=== PATIENT | male | born 1980 ===

== ENCOUNTER 2018-07-18 02:59 | Emergency (ER) | payer MEDICAID ==
[2018-07-18 03:15] VITALS: BMI 23.5
--- NOTE | 2018-07-18 03:25 | ED PDOC ---
Arrival/HPI - General Time Seen by Provider: 07/18/18 03:22 Historian: Patient, Family, EMS EM Caveat: Uncooperative - History of Present Illness Narrative History of Present Illness (Text): 07/18/18 03:02 37 year old male, with unobtainable past medical history, presents to the emergency department by EMS found by the police for reportedly suicidal ideation. Patient was found by the water. According to mother, patient was telling her he is tired of life and wants to end it and also said to take care of his daughter when he's gone. Mother said he has been under a lot of stress and believes he needs help. Patient is mildly intoxicated. Patient denies any suicidal ideation at this point and denies homicidal ideation as well. HPI and ROS limited due to patient being uncooperative. Past Medical History - Provider Review Nursing Documentation Reviewed: Yes Family/Social History - Physician Review Nursing Documentation Reviewed: Yes Family/Social History: No Known Family HX Allergies/Home Meds Allergies/Adverse Reactions: Allergies No Known Allergies Allergy (Verified 07/18/18 03:33) Home Medications: Home Meds Medication Instructions Recorded Confirmed No Known Home Med 07/18/18 07/18/18 Review of Systems - Physician Review All systems were reviewed & negative as marked: Yes - Review of Systems Systems not reviewed;Unavailable: Uncooperative Psychiatric: Suicidal Ideation. absent: Other (homicidal ideation) Physical Exam Vital Signs Reviewed: Yes Vital Signs Temp Pulse Resp BP Pulse Ox 07/18/18 20:16 100 07/18/18 20:02 75 17 118/75 100 07/18/18 18:35 98.2 F 78 18 119/71 100 07/18/18 15:22 76 18 101/62 99 07/18/18 13:00 77 18 98/68 L 99 07/18/18 10:00 98.4 F 78 18 92/71 L 99 07/18/18 07:15 72 18 104/66 98 07/18/18 06:30 90 18 112/52 L 96 Appearance: Positive for: Well-Appearing, Non-Toxic, Comfortable Pain Distress: None Mental Status: Positive for: Agitated (mildly intoxicated) - Systems Exam Head: Present: Atraumatic, Normocephalic Pupils: Present: PERRL Extroacular Muscles: Present: EOMI Conjunctiva: Present: Normal Mouth: Present: Moist Mucous Membranes Neck: Present: Normal Range of Motion Respiratory/Chest: Present: Clear to Auscultation, Good Air Exchange. No: Respiratory Distress, Accessory Muscle Use Cardiovascular: Present: Regular Rate and Rhythm, Normal S1, S2. No: Murmurs Abdomen: No: Tenderness, Distention, Peritoneal Signs Back: Present: Normal Inspection Upper Extremity: Present: Normal Inspection. No: Cyanosis, Edema Lower Extremity: Present: Normal Inspection. No: Edema Neurological: Present: GCS=15, CN II-XII Intact, Speech Normal Skin: Present: Warm, Dry, Normal Color. No: Rashes Psychiatric: Present: Alert, Agitated, Intoxicated Medical Decision Making ED Course and Treatment: 07/18/18 03:02 Impression: 37 year old male presents for reportedly suicidal ideation, as per mother. Patient currently denies any suicidal ideation. Plan: -- EKG -- Labs -- Chest X-ray -- Urinalysis -- PES eval -- Ativan Benadryl, Haldol, -- 1:1 Sitter, observation -- Restraints -- Reassess and disposition Progress Notes: 07/18/18 03:17 Code roberts called. Patient is uncooperative, agitated, and combative. Patient restrained and sedated for the safety of himself and the staff. Was given benadryl 50mg, haldol 5mg, ativan 2mg IM. Additional haldol 5mg IM given for continued aggressive behavior. On re-eval patient sleeping comfortably. Labs, Chest X-Ray and EKG ordered. 07/18/18 04:50 EKG shows NSR at 92 BPM with t-wave inversion on lead III. Interpreted by me. Patient medically cleared. PES contacted and came to evaluate patient. - Lab Interpretations Lab Results: 07/18/18 04:45 07/18/18 04:45 Lab Results 07/18/18 05:05: Urine Opiates Screen Negative, Urine Methadone Screen Negative, Ur Barbiturates Screen Negative, Ur Phencyclidine Scrn Negative, Ur Amphetamines Screen Positive H, U Benzodiazepines Scrn Negative, U Oth Cocaine Metabols Negative, U Cannabinoids Screen Positive H 07/18/18 05:05: Urine Color Yellow, Urine Appearance Clear, Urine pH 6.0, Ur Specific [place] 1.025, Urine Protein Trace H, Urine Glucose (UA) Negative, Urine Ketones Trace H, Urine Blood Negative, Urine Nitrate Negative, Urine Bilirubin Negative, Urine Urobilinogen 0.2, Ur Leukocyte Esterase Negative, Urine RBC 0 - 2, Urine WBC 1 - 3, Ur Epithelial Cells 0 - 2, Amorphous Sediment Few, Urine Bacteria Occ 07/18/18 04:57: POC Glucose (mg/dL) 100 07/18/18 04:45: Alcohol, Quantitative 169 H 07/18/18 04:45: Salicylates < 1 L, Acetaminophen < 10.0 L 07/18/18 04:45: Sodium 149 H, Potassium 3.8, Chloride 109 H, Carbon Dioxide 22, Anion Gap 22 H, BUN 13, Creatinine 0.9, Est GFR ( Amer) > 60, Est GFR ( Non-Af Amer) > 60, Random Glucose 102, Calcium 9.2, Total Bilirubin 0.5, AST 23 , ALT 30, Alkaline Phosphatase 84, Total Protein 7.7, Albumin 4.6, Globulin 3.0 , Albumin/Globulin Ratio 1.5 07/18/18 04:45: WBC 5.8, RBC 4.99, Hgb 14.2, Hct 40.8 L, MCV 81.8, MCH 28.5, MCHC 34.8, RDW 13.5, Plt Count 233, MPV 9.8, Gran % 52.5, Lymph % (Auto) 39.5 H , [place] % (Auto) 7.2 H, Eos % (Auto) 0.5 L, Baso % (Auto) 0.3, Gran # 3.05, Lymph # (Auto) 2.3, [place] # (Auto) 0.4, Eos # (Auto) 0.0, Baso # (Auto) 0.02 I have reviewed the lab results: Yes - RAD Interpretation Narrative RAD Interpretations (Text): NAD Radiology Orders: 07/18/18 07:43 CHEST PORTABLE [RAD] Stat Suture Polisher: Radiologist - EKG Interpretation Interpreted by ED Physician: Yes Type: 12 lead EKG - Medication Orders Current Medication Orders: Discontinued Medications Diphenhydramine HCl (Benadryl) 50 mg IM STAT STA Stop: 07/18/18 03:42 Last Admin: 07/18/18 03:42 Dose: 50 mg IM Administration Charges Document 07/18/18 03:42 RG (Rec: 07/18/18 04:07 RG [id number]) Injection Site MAR Injection Site Left Vastus Lateralis Charges for Administration # of IM Administrations 1 Haloperidol Lactate (Haldol) 5 mg IM STAT STA PRN Reason: Protocol Stop: 07/18/18 03:59 Last Admin: 07/18/18 03:58 Dose: 5 mg IM Administration Charges Document 07/18/18 03:58 RG (Rec: 07/18/18 04:16 RG [id number]) Injection Site MAR Injection Site Right Deltoid Charges for Administration # of IM Administrations 1 Haloperidol Lactate (Haldol) 5 mg IM STAT STA PRN Reason: Protocol Stop: 07/18/18 04:12 Last Admin: 07/18/18 04:16 Dose: 5 mg IM Administration Charges Document 07/18/18 04:16 RG (Rec: 07/18/18 04:16 RG [id number]) Injection Site MAR Injection Site Right Vastus Lateralis Charges for Administration # of IM Administrations 1 Lorazepam (Ativan) 2 mg IM ONCE ONE PRN Reason: Protocol Stop: 07/18/18 03:42 Last Admin: 07/18/18 04:06 Dose: 2 mg IM Administration Charges Document 07/18/18 04:06 RG (Rec: 07/18/18 04:06 RG [id number]) Injection Site MAR Injection Site Left Vastus Lateralis Charges for Administration # of IM Administrations 1 - Transfer of Care Patient signed out to Dr:: Jacques Other: Pending PES dispo - Scribe Statement The provider has reviewed the documentation as recorded by the Nirali Hwang Provider Scribe Attestation: All medical record entries made by the Menaibzoila were at my direction and personally dictated by me. I have reviewed the chart and agree that the record accurately reflects my personal performance of the history, physical exam, medical decision making, and the department course for this patient. I have also personally directed, reviewed, and agree with the discharge instructions and disposition. Disposition/Present on Arrival - Present on Arrival Any Indicators Present on Arrival: No History of DVT/PE: No History of Uncontrolled Diabetes: No Urinary Catheter: No History of Decub. Ulcer: No - Disposition Have Diagnosis and Disposition been Completed?: Yes Diagnosis: Suicidal ideation, Alcohol intoxication Disposition: HOME/ ROUTINE Disposition Time: 07:00 (Signed out to incoming physician at shift change) Patient Problems: Current Active Problems Problem Status Onset Alcohol intoxication Acute Suicidal ideation Acute Condition: STABLE Discharge Instructions (ExitCare): Depression, Adult (DC), Polysubstance Abuse (DC) Additional Instructions: MARIETTA SARKAR, thank you for letting us take care of you today. Your provider was Nataliya Allen MD and you were treated for ETOH. The emergency medical care you received today was directed at your acute symptoms. If you were prescribed any medication, please fill it and take as directed. It may take several days for your symptoms to resolve. Return to the Emergency Department if your symptoms worsen, do not improve, or if you have any other problems. Please contact your doctor or call one of the physicians/clinics you have been referred to that are listed on the Patient Visit Information form that is included in your discharge packet. Bring any paperwork you were given at discharge with you along with any medications you are taking to your follow up visit. Our treatment cannot replace ongoing medical care by a primary care provider outside of the emergency department. Thank you for allowing the [facility] team to be part of your care today. If you had an X-Ray or CT scan: A Radiologist will review the ED reading if any change in treatment is needed we will contact you. If you had a blood, urine, or wound culture: It will take several days for the results, if any change in treatment is needed we will contact you. If you had an STI test: It will take 48 hours for the results. Please call after 1 week if you have not heard back. Forms: [employer] (Kyrgyz)
[2018-07-18] MEDS ORDERED: DiphenhydrAMINE 50 mg/ml Inj ONE (03:27)
[2018-07-18] MEDS ORDERED: DiphenhydrAMINE 50 mg/ml Inj IM STA (03:41)
[2018-07-18 05:10] LABS: BASO # 0.02 K/mm3 (0.0-2.0); BASO % 0.3 % (0.0-3.0); EOS % 0.5 % (1.5-5.0); GRAN # 3.05 (1.4-6.5); GRAN % 52.5 % (50.0-68.0); HEMOGLOBIN 14.2 g/dL (14.0-18.0); LYMPH # 2.3 (1.2-3.4); LYMPH % 39.5 % (22.0-35.0); MEAN CELL VOLUME 81.8 fl (80.0-105.0); MEAN CORPUSCULAR HEMOGLOBIN 28.5 pg (25.0-35.0); MEAN CORPUSCULAR HGB CONC 34.8 g/dl (31.0-37.0); MEAN PLATELET VOLUME 9.8 fl (7.0-11.0); MONO # 0.4 (0.1-0.6); MONO % 7.2 % (1.0-6.0); RBC 4.99 10^6/uL (3.5-6.1); RED CELL DISTRIBUTION WIDTH 13.5 % (11.5-14.5); WHITE BLOOD COUNT 5.8 10^3/ul (4.5-11.0)
[2018-07-18 05:14] LABS: URINE BILIRUBIN NEGATIVE (NEGATIVE); URINE BLOOD NEGATIVE (NEGATIVE); URINE GLUCOSE (UA) NEGATIVE (NEGATIVE); URINE LEUKOCYTE ESTERASE NEGATIVE Leu/uL (NEGATIVE); URINE PROTEIN TRACE mg/dL (<30 mg/dL); URINE UROBILINOGEN 0.2 E.U./dL (<1 E.U./dL)
[2018-07-18 05:15] LABS: URINE APPEARANCE CLEAR (CLEAR); URINE COLOR YELLOW (YELLOW)
[2018-07-18 05:19] LABS: ACETAMINOPHEN < 10.0 ug/ml (10.0-20.0); ALB/GLOB RATIO 1.5 (1.1-1.8); ALBUMIN 4.6 g/dL (3.0-4.8); ALT/SGPT 30 U/L (7-56); AST/SGOT 23 U/L (17-59); BLOOD UREA NITROGEN 13 mg/dL (7-21); CALCIUM 9.2 mg/dL (8.4-10.5); GFR NON-AFRICAN AMERICAN > 60; SALICYLATE < 1 mg/dL (2.0-20.0)
[2018-07-18 05:40] LABS: BARBITURATES, UR NEGATIVE (NEGATIVE); BENZODIAZEPINES, UR NEGATIVE (NEGATIVE); OPIATES, UR NEGATIVE (NEGATIVE); PHENCYCLIDINE, UR NEGATIVE (NEGATIVE)
[2018-07-18 05:47] LABS: URINE EPITHELIAL CELLS 0 - 2 /hpf (0-5); URINE RBC 0 - 2 /hpf (0-2)
[2018-07-18 05:48] LABS: URINE AMORPHOUS SEDIMENT FEW; URINE BACTERIA OCC (NEG)
--- NOTE | 2018-07-18 12:14 | RAD ---
Date of service: 07/18/2018 HISTORY: suicidal ideation COMPARISON: No prior. FINDINGS: LUNGS: No evidence of focal infiltrate or consolidation in the lungs. PLEURA: No significant pleural effusion identified, no pneumothorax apparent. CARDIOVASCULAR: Normal. OSSEOUS STRUCTURES: No significant abnormalities. VISUALIZED UPPER ABDOMEN: Normal. OTHER FINDINGS: None. IMPRESSION: No active disease.
--- NOTE | 2018-07-18 16:01 | ED PDOC ---
Physical Exam - Physical Exam Narrative Physical Exam (Text): Signed out to me pending Psych eval. Evaluated by Psych at 8am and noon. Dr. Ellsworth recommends [facility] screening. Pending [facility] screener at 4pm. Vital Signs Temp Pulse Resp BP Pulse Ox 07/18/18 18:35 98.2 F 78 18 119/71 100 07/18/18 15:22 76 18 101/62 99 07/18/18 13:00 77 18 98/68 L 99 07/18/18 10:00 98.4 F 78 18 92/71 L 99 07/18/18 07:15 72 18 104/66 98 07/18/18 06:30 90 18 112/52 L 96 Finger Stick Blood Glucose: 100 Medical Decision Making - Lab Interpretations Lab Results: 07/18/18 04:45 07/18/18 04:45 Lab Results 07/18/18 05:05: Urine Opiates Screen Negative, Urine Methadone Screen Negative, Ur Barbiturates Screen Negative, Ur Phencyclidine Scrn Negative, Ur Amphetamines Screen Positive H, U Benzodiazepines Scrn Negative, U Oth Cocaine Metabols Negative, U Cannabinoids Screen Positive H 07/18/18 05:05: Urine Color Yellow, Urine Appearance Clear, Urine pH 6.0, Ur Specific [place] 1.025, Urine Protein Trace H, Urine Glucose (UA) Negative, Urine Ketones Trace H, Urine Blood Negative, Urine Nitrate Negative, Urine Bilirubin Negative, Urine Urobilinogen 0.2, Ur Leukocyte Esterase Negative, Urine RBC 0 - 2, Urine WBC 1 - 3, Ur Epithelial Cells 0 - 2, Amorphous Sediment Few, Urine Bacteria Occ 07/18/18 04:57: POC Glucose (mg/dL) 100 07/18/18 04:45: Alcohol, Quantitative 169 H 07/18/18 04:45: Salicylates < 1 L, Acetaminophen < 10.0 L 07/18/18 04:45: Sodium 149 H, Potassium 3.8, Chloride 109 H, Carbon Dioxide 22, Anion Gap 22 H, BUN 13, Creatinine 0.9, Est GFR ( Amer) > 60, Est GFR ( Non-Af Amer) > 60, Random Glucose 102, Calcium 9.2, Total Bilirubin 0.5, AST 23 , ALT 30, Alkaline Phosphatase 84, Total Protein 7.7, Albumin 4.6, Globulin 3.0 , Albumin/Globulin Ratio 1.5 07/18/18 04:45: WBC 5.8, RBC 4.99, Hgb 14.2, Hct 40.8 L, MCV 81.8, MCH 28.5, MCHC 34.8, RDW 13.5, Plt Count 233, MPV 9.8, Gran % 52.5, Lymph % (Auto) 39.5 H , [place] % (Auto) 7.2 H, Eos % (Auto) 0.5 L, Baso % (Auto) 0.3, Gran # 3.05, Lymph # (Auto) 2.3, [place] # (Auto) 0.4, Eos # (Auto) 0.0, Baso # (Auto) 0.02 - RAD Interpretation Radiology Orders: 07/18/18 07:43 CHEST PORTABLE [RAD] Stat - Medication Orders Current Medication Orders: Discontinued Medications Diphenhydramine HCl (Benadryl) 50 mg IM STAT STA Stop: 07/18/18 03:42 Last Admin: 07/18/18 03:42 Dose: 50 mg IM Administration Charges Document 07/18/18 03:42 RG (Rec: 07/18/18 04:07 [id number]) Injection Site MAR Injection Site Left Vastus Lateralis Charges for Administration # of IM Administrations 1 Haloperidol Lactate (Haldol) 5 mg IM STAT STA PRN Reason: Protocol Stop: 07/18/18 03:59 Last Admin: 07/18/18 03:58 Dose: 5 mg IM Administration Charges Document 07/18/18 03:58 RG (Rec: 07/18/18 04:16 [id number]) Injection Site MAR Injection Site Right Deltoid Charges for Administration # of IM Administrations 1 Haloperidol Lactate (Haldol) 5 mg IM STAT STA PRN Reason: Protocol Stop: 07/18/18 04:12 Last Admin: 07/18/18 04:16 Dose: 5 mg IM Administration Charges Document 07/18/18 04:16 RG (Rec: 07/18/18 04:16 [id number]) Injection Site MAR Injection Site Right Vastus Lateralis Charges for Administration # of IM Administrations 1 Lorazepam (Ativan) 2 mg IM ONCE ONE PRN Reason: Protocol Stop: 07/18/18 03:42 Last Admin: 07/18/18 04:06 Dose: 2 mg IM Administration Charges Document 07/18/18 04:06 DIO (Rec: 07/18/18 04:06 DIO [id number]) Injection Site MAR Injection Site Left Vastus Lateralis Charges for Administration # of IM Administrations 1 Disposition/Present on Arrival - Present on Arrival Any Indicators Present on Arrival: No History of DVT/PE: No History of Uncontrolled Diabetes: No Urinary Catheter: No History of Decub. Ulcer: No History Surgical Site Infection Following: None - Disposition Have Diagnosis and Disposition been Completed?: No Diagnosis: Suicidal ideation Disposition Time: 18:48 Condition: STABLE Forms: [employer] (Greek)
[2018-07-18 18:36] VITALS: TEMP 98.2; O2SAT 100
[2018-07-18 20:03] VITALS: BP 118/75; PULSE 75; RESP 17
--- NOTE | 2018-07-18 20:08 | ED PDOC ---
Physical Exam Vital Signs Temp Pulse Resp BP Pulse Ox 07/18/18 20:02 75 17 118/75 100 07/18/18 18:35 98.2 F 78 18 119/71 100 07/18/18 15:22 76 18 101/62 99 07/18/18 13:00 77 18 98/68 L 99 07/18/18 10:00 98.4 F 78 18 92/71 L 99 07/18/18 07:15 72 18 104/66 98 07/18/18 06:30 90 18 112/52 L 96 Finger Stick Blood Glucose: 100 Medical Decision Making ED Course and Treatment: 07/18/18 19:07 Patient endorsed to me by Dr. Hanna. Was brought in for substance abuse and suicidal ideation and seen by psychiatrist Dr. Scott. Does not meet qualifications for involuntary admission. Patient can be discharged and have psychiatric outpatient follow-up. - Lab Interpretations Lab Results: 07/18/18 04:45 07/18/18 04:45 Lab Results 07/18/18 05:05: Urine Opiates Screen Negative, Urine Methadone Screen Negative, Ur Barbiturates Screen Negative, Ur Phencyclidine Scrn Negative, Ur Amphetamines Screen Positive H, U Benzodiazepines Scrn Negative, U Oth Cocaine Metabols Negative, U Cannabinoids Screen Positive H 07/18/18 05:05: Urine Color Yellow, Urine Appearance Clear, Urine pH 6.0, Ur Specific [place] 1.025, Urine Protein Trace H, Urine Glucose (UA) Negative, Urine Ketones Trace H, Urine Blood Negative, Urine Nitrate Negative, Urine Bilirubin Negative, Urine Urobilinogen 0.2, Ur Leukocyte Esterase Negative, Urine RBC 0 - 2, Urine WBC 1 - 3, Ur Epithelial Cells 0 - 2, Amorphous Sediment Few, Urine Bacteria Occ 07/18/18 04:57: POC Glucose (mg/dL) 100 07/18/18 04:45: Alcohol, Quantitative 169 H 07/18/18 04:45: Salicylates < 1 L, Acetaminophen < 10.0 L 07/18/18 04:45: Sodium 149 H, Potassium 3.8, Chloride 109 H, Carbon Dioxide 22, Anion Gap 22 H, BUN 13, Creatinine 0.9, Est GFR ( Amer) > 60, Est GFR ( Non-Af Amer) > 60, Random Glucose 102, Calcium 9.2, Total Bilirubin 0.5, AST 23 , ALT 30, Alkaline Phosphatase 84, Total Protein 7.7, Albumin 4.6, Globulin 3.0 , Albumin/Globulin Ratio 1.5 07/18/18 04:45: WBC 5.8, RBC 4.99, Hgb 14.2, Hct 40.8 L, MCV 81.8, MCH 28.5, MCHC 34.8, RDW 13.5, Plt Count 233, MPV 9.8, Gran % 52.5, Lymph % (Auto) 39.5 H , [place] % (Auto) 7.2 H, Eos % (Auto) 0.5 L, Baso % (Auto) 0.3, Gran # 3.05, Lymph # (Auto) 2.3, [place] # (Auto) 0.4, Eos # (Auto) 0.0, Baso # (Auto) 0.02 - RAD Interpretation Radiology Orders: 07/18/18 07:43 CHEST PORTABLE [RAD] Stat - Medication Orders Current Medication Orders: Discontinued Medications Diphenhydramine HCl (Benadryl) 50 mg IM STAT STA Stop: 07/18/18 03:42 Last Admin: 07/18/18 03:42 Dose: 50 mg IM Administration Charges Document 07/18/18 03:42 RG (Rec: 07/18/18 04:07 [id number]) Injection Site MAR Injection Site Left Vastus Lateralis Charges for Administration # of IM Administrations 1 Haloperidol Lactate (Haldol) 5 mg IM STAT STA PRN Reason: Protocol Stop: 07/18/18 03:59 Last Admin: 07/18/18 03:58 Dose: 5 mg IM Administration Charges Document 07/18/18 03:58 RG (Rec: 07/18/18 04:16 [id number]) Injection Site MAR Injection Site Right Deltoid Charges for Administration # of IM Administrations 1 Haloperidol Lactate (Haldol) 5 mg IM STAT STA PRN Reason: Protocol Stop: 07/18/18 04:12 Last Admin: 07/18/18 04:16 Dose: 5 mg IM Administration Charges Document 07/18/18 04:16 RG (Rec: 07/18/18 04:16 [id number]) Injection Site MAR Injection Site Right Vastus Lateralis Charges for Administration # of IM Administrations 1 Lorazepam (Ativan) 2 mg IM ONCE ONE PRN Reason: Protocol Stop: 07/18/18 03:42 Last Admin: 07/18/18 04:06 Dose: 2 mg IM Administration Charges Document 07/18/18 04:06 DIO (Rec: 07/18/18 04:06 DIO [id number]) Injection Site MAR Injection Site Left Vastus Lateralis Charges for Administration # of IM Administrations 1 - Scribe Statement The provider has reviewed the documentation as recorded by the Menaibzoila Boucher Provider Scribe Provider Scribe Attestation: All medical record entries made by the Scribe were at my direction and personally dictated by me. I have reviewed the chart and agree that the record accurately reflects my personal performance of the history, physical exam, medical decision making, and the department course for this patient. I have also personally directed, reviewed, and agree with the discharge instructions and disposition. Disposition/Present on Arrival - Present on Arrival Any Indicators Present on Arrival: No History of DVT/PE: No History of Uncontrolled Diabetes: No Urinary Catheter: No History of Decub. Ulcer: No History Surgical Site Infection Following: None - Disposition Have Diagnosis and Disposition been Completed?: Yes Diagnosis: Suicidal ideation, Alcohol intoxication Disposition: HOME/ ROUTINE Disposition Time: 20:16 Condition: STABLE Discharge Instructions (ExitCare): Depression, Adult (DC), Polysubstance Abuse (DC) Additional Instructions: MARIETTA SARKAR, thank you for letting us take care of you today. Your provider was Nataliya Allen MD and you were treated for ETOH. The emergency medical care you received today was directed at your acute symptoms. If you were prescribed any medication, please fill it and take as directed. It may take several days for your symptoms to resolve. Return to the Emergency Department if your symptoms worsen, do not improve, or if you have any other problems. Please contact your doctor or call one of the physicians/clinics you have been referred to that are listed on the Patient Visit Information form that is included in your discharge packet. Bring any paperwork you were given at discharge with you along with any medications you are taking to your follow up visit. Our treatment cannot replace ongoing medical care by a primary care provider outside of the emergency department. Thank you for allowing the [facility] team to be part of your care today. If you had an X-Ray or CT scan: A Radiologist will review the ED reading if any change in treatment is needed we will contact you. If you had a blood, urine, or wound culture: It will take several days for the results, if any change in treatment is needed we will contact you. If you had an STI test: It will take 48 hours for the results. Please call after 1 week if you have not heard back. Forms: [employer] (Lithuanian)
--- NOTE | 2018-07-18 22:08 | CARD ---
APPROVED REPORT Date of service: 07/18/2018 EKG Measurement Heart [id number] <Conclusion> Normal sinus rhythm Cannot rule out Anterior infarct, age undetermined Abnormal ECG
== END 2018-07-18 20:16 | disposition home or self-care (01) ==
LOC: MERGE 02:59 → ED 02:59
DX: R45.851 Suicidal ideations (principal); F10.129 Alcohol abuse with intoxication, unspecified
CPT/HCPCS: 71045; 80053; 80320; 80324; 80329; 80345; 80346; 80349; 80353; 80358; 80361; 81001; 82948; 83992; 85025; 93005; 96372; 99285; J1200; J1630; J2060